=== PATIENT | male | born 1980 | race Caucasian/White ===

== ENCOUNTER 2017-12-22 17:13 | Emergency (ER) | payer OTHER ==
[2017-12-22 17:57] LABS: ABSOLUTE BASOPHIL COUNT 0 /CUMM (0.0-0.2); ABSOLUTE EOSINOPHIL COUNT 0.3 /CUMM (0.0-0.7); ABSOLUTE GRANULOCYTE CT 4.7 /CUMM (1.4-6.5); ABSOLUTE MONOCYTE COUNT 0.7 /CUMM (0.10-0.60); BASOPHIL % 0.4 % (0.0-2.0); EOSINOPHIL % 3.4 % (0-5); GRANULOCYTE % 60.9 % (42.2-75.2); HEMATOCRIT 45.3 % (42-52); MEAN CORPUSCULAR HGB 29.9 PG (27.0-31.0); MEAN CORPUSCULAR HGB CONC 33.8 G/DL (33.0-37.0); MEAN CORPUSCULAR VOLUME 88.3 FL (80.0-94.0); MEAN PLATELET VOLUME 9.3 FL (7.4-10.4); PLATELET COUNT 222 /CUMM (130-400); RBC DISTRIBUTION WIDTH 14.2 % (11.5-14.5); RED BLOOD CELL CT 5.13 /CUMM (4.70-6.10); WHITE BLOOD CELL COUNT 7.8 /CUMM (4.8-10.8)
[2017-12-22 19:04] VITALS: BP 123/79
--- NOTE | 2017-12-22 19:45 | CT SCAN REPORT ---
EXAMINATION: CT HEAD WITHOUT CONTRAST CLINICAL INFORMATION: New onset headache. COMPARISON: None. TECHNIQUE: Contiguous axial imaging was performed from the skull base to vertex without intravenous administration of contrast. DLP: 640 mGy-cm. FINDINGS: There is no intracranial hemorrhage, large infarction, or mass lesion. There is no extra-axial collection. There is asymmetry of the lateral ventricles with the right side larger than the left, a likely congenital finding. There is no evidence of hydrocephalus. The cerebellar tonsils are normally positioned. A mild amount mucosal thickening is seen in the ethmoids. No paranasal sinus fluid levels are seen. The visualized mastoid air cells are clear. IMPRESSION: - No acute intracranial abnormality. - Mild paranasal sinus mucosal thickening without fluid levels.
--- NOTE | 2017-12-22 19:54 | ED GENERAL ADULT ---
History of Present Illness General Chief Complaint: Headache Stated Complaint: MIGRAINE HEADACHE Source: patient Exam Limitations: no limitations Vital Signs & Intake/Output Vital Signs & Intake/Output Vital Signs Date Time Temp Pulse Resp B/P B/P Pulse O2 O2 Flow FiO2 Mean Ox Delivery Rate 12/22 1904 98.6 70 20 123/79 100 Room Air 12/22 1839 Room Air 12/22 1715 97.7 89 16 146/90 97 Room Air Allergies Coded Allergies: No Known Allergies (12/22/17) Reconcile Medications Fluticasone Propionate (Flonase Allergy Relief) 50 MCG/ACTUATION SPRAY.SUSP 1 SPRAY TANG DAILY sinusitis/nasal congestion Naproxen (Naprosyn) 500 MG TABLET 1 TAB PO BID PRN headache or pain Pseudoephedrine HCl (Nasal Decongestant) 30 MG CAPSULE 2 CAP PO Q4 HRS NEEDED PRN sinus pain/congestion Triage Note: PT TO ED WITH C/O MIGRAINE X 3 DAYS. TAKING EXCEDRIN AND MOTRIN W/O RELIEF. +NAUSEA, PHOTOSENSITIVITY. Triage Nurses Notes Reviewed? yes Onset: Gradual Duration: day(s): Timing: constant HPI: 37-year-old otherwise healthy male presenting with headache 3 days. Patient reports a dull pressure-like frontal headache with no worsening or alleviating symptoms. The pain is associated with photophobia and phonophobia. Triage note mentions nausea, but patient denies any nausea or vomiting to me. Denies visual changes. Patient has been trying Excedrin without relief. States that he has a remote history of recurrent headaches, with no formal diagnosis, but has not had a significant headache for over 10 years. Denies any recent head trauma. Not on any anticoagulation. Denies fevers. (Libra Cat) Past History Travel History Traveled to [place] past 21 day No Medical History Any Pertinent Medical History? none Surgical History Surgical History: non-contributory Psychosocial History What is your primary language Bulgarian Tobacco Use: Current Daily Use Daily Tobacco Use Amount/Type: => 5 Cigarettes daily Family History Hx Contributory? No (Libra Cat) Review of Systems Review of Systems Constitutional: Reports: no symptoms. EENTM: Reports: no symptoms. Respiratory: Reports: no symptoms. Cardiovascular: Reports: no symptoms. GI: Reports: no symptoms. Genitourinary: Reports: no symptoms. Musculoskeletal: Reports: no symptoms. Skin: Reports: no symptoms. Neurological/Psychological: Reports: see HPI. Hematologic/Endocrine: Reports: no symptoms. Immunologic/Allergic: Reports: no symptoms. All Other Systems: Reviewed and Negative (Libra Cat) Physical Exam Physical Exam General Appearance: well developed/nourished, no apparent distress, alert, awake Comments: Gen.: Well-nourished, well-developed, no acute distress. Head: Normocephalic, atraumatic, nontender Eyes: Normal inspection bilaterally Ears: Normal inspection bilaterally Nose: Normal inspection, positive tenderness to palpation over the bilateral frontal sinuses, no tenderness to palpation over the maxillary sinuses Neck: Normal inspection, supple Lungs: clear to auscultation bilaterally, normnal breath sounds Heart: regular rate and rhythm Abdomen: soft and non-tender Extremities: Normal inspection Neurologic: alert and oriented x3, steady gait, cranial nerves II through XII intact, sensation intact, motor strength 5 out of 5 in all extremities, reflexes 2+, cerebellar function intact Skin: warm and dry Psychiatric: Normal mood and affect, no apparent delusions or hallucinations, behavior appropriate Core Measures ACS in differential dx? No CVA/TIA Diagnosis: No Sepsis Present: No Sepsis Focused Exam Completed? No (Libra Cat) Progress Differential Diagnoses I considered the following diagnoses in my evaluation of the patient: [Tension headache versus migraine versus sinus headache, low concern for ICH versus meningitis versus pseudotumor cerebri] Plan of Care: Orders Procedure Date/time Status COMPREHENSIVE METABOLIC PANEL 12/22 1721 Complete CBC WITHOUT DIFFERENTIAL 12/22 1721 Complete Laboratory Tests 12/22/17 1746: Anion Gap 8, Estimated GFR > 60, BUN/Creatinine Ratio 17.5, Glucose 85, Calcium 9.4, Total Bilirubin 0.4, AST 28, ALT 37, Alkaline Phosphatase 41, Total Protein 7.1, Albumin 4.4, Globulin 2.7, Albumin/Globulin Ratio 1.6, CBC w Diff NO MAN DIFF REQ, RBC 5.13, MCV 88.3, MCH 29.9, MCHC 33.8, RDW 14.2, MPV 9.3, Gran % 60.9, Lymphocytes % 26.4, Monocytes % 8.9, Eosinophils % 3.4, Basophils % 0.4, Absolute Granulocytes 4.7, Absolute Lymphocytes 2.0, Absolute Monocytes 0.7 H, Absolute Eosinophils 0.3, Absolute Basophils [address] scan IMPRESSION: - No acute intracranial abnormality. - Mild paranasal sinus mucosal thickening without fluid levels. Labs unremarkable Patient had some relief after IV fluids and Reglan. Will give Toradol for additional pain relief now that his CT scan was negative for ICH. Likely with a sinus headache. Will give Rx Sudafed, Flonase, and naproxen. Given that his symptoms have only been present for 3 days and it is likely viral etiology antibiotics are deferred at this time. He was counseled on supportive care and strict return precautions. Counseled that if his symptoms are still present after 7-10 days he may need antibiotics for his sinusitis. Initial ED EKG: none (Libra Cat) Departure Departure Disposition: HOME OR SELF CARE Condition: Stable Clinical Impression Primary Impression: Sinusitis Secondary Impressions: Headache Referrals: Patient Has No Primary Care Dr (PCP/Family) Additional Instructions: Use naproxen as needed for headache. Use Flonase and Sudafed to help alleviate your sinusitis. Follow-up with a primary care provider for reevaluation and to establish care. Return to the emergency department for any new or worsening symptoms. Departure Forms: Customer Survey General Discharge Information Prescriptions: Current Visit Scripts Naproxen (Naprosyn) 1 TAB PO BID PRN headache or pain #60 TAB Fluticasone Propionate (Flonase Allergy Relief) 1 SPRAY TANG DAILY #1 BOT Pseudoephedrine HCl (Nasal Decongestant) 2 CAP PO Q4 HRS NEEDED PRN sinus pain/congestion #30 CAP (Libra Cat) PA/BAG CHECKER Co-Sign Statement Statement: ED Attending supervision documentation- [] I saw and evaluated the patient. I have also reviewed all the pertinent lab results and diagnostic results. I agree with the findings and the plan of care as documented in the PA's/BAG CHECKER's documentation. [x] I have reviewed the ED Record and agree with the PA's/BAG CHECKER's documentation. [] Additions or exceptions (if any) to the PAs/BAG CHECKER's note and plan are summarized below: [] (Tariq Bryant DO) Critical Care Note Critical Care Note Critical Care Time: non-applicable (Libra Cat)
[2017-12-22] MEDS ORDERED: FLONASE ALLERG9.9 ML NAS (19:56)
[2017-12-22] MEDS ORDERED: NAPROSYN500 M1 PO (19:56)
[2017-12-22] MEDS ORDERED: NASAL DECONGEST30 M2 PO (19:56)
== END 2017-12-22 20:04 ==
LOC: ERH 17:13
PROVIDERS: Physician Assistant
DX: J32.9 Chronic sinusitis, unspecified (principal); R51 Headache; F17.210 Nicotine dependence, cigarettes, uncomplicated
CPT/HCPCS: 96361; 96374; 96375; J1885; J2765